=== PATIENT | female | born 1990 | race American Indian/Alaskan Native ===

== ENCOUNTER 2016-10-27 15:34 | Emergency (ER) | payer OTHER ==
[2016-10-27 19:22] LABS: Bacteria,Urine 1+ /HPF (Negative); Bilirubin,Urine NEG (Negative); Blood,Urine LG (Negative); Ketones,Urine NEG (Negative); Leukocyte Esterase,Urine MOD (Negative); Mucus,Urine FEW /HPF; Nitrite,Urine NEG (Negative); Protein,Urine <15 mg/dL mg/dL (Negative); Urobilinogen,Urine < 2.0 mg/dL (<2.0)
[2016-10-27 19:35] LABS: Basophils % (Auto) 0.2 % (0.0-1.8); Eosinophils % (Auto) 0.2 % (0.0-4.3); Mean Corpuscular HGB Conc 30 % (30-34); Mean Corpuscular Volume 72 fl (79-97); Platelet Count 295 K/mm3 (140-440); Red Blood Count 4.81 M/mm3 (3.65-5.03); Red Cell Distribution Width 17.2 % (13.2-15.2); White Blood Count 16.2 K/mm3 (4.5-11.0)
[2016-10-27 19:38] LABS: Hematocrit 34.8 % (30.3-42.9); Hemoglobin 10.6 gm/dl (10.1-14.3); Mean Corpuscular Hemoglobin 22 pg (28-32)
[2016-10-27 19:54] LABS: Alanine Aminotransferase 8 units/L (7-56); Albumin 4.1 g/dL (3.9-5); Albumin/Globulin Ratio 1.3 %; Alkaline Phosphatase 104 units/L (35-129); Anion Gap 17 mmol/L; BUN/Creatinine Ratio 12.85; Bilirubin,Total 0.4 mg/dL (0.1-1.2); Blood Urea Nitrogen 9 mg/dL (7-17); Calcium 8.5 mg/dL (8.4-10.2); Carbon Dioxide 25 mmol/L (22-30); Chloride 98.4 mmol/L (98-107); Glucose 96 mg/dL (65-100); Lipase 29 units/L (13-60); Potassium 4.2 mmol/L (3.6-5.0); Sodium 136 mmol/L (137-145); Total Protein 7.2 g/dL (6.3-8.2)
--- NOTE | 2016-10-27 23:33 | Ultrasound Report ---
FINAL REPORT PROCEDURE: US ABDOMEN LIMITED TECHNIQUE: Real-time sonography in multiple planes of the gallbladder fossa and CBD with imaging of the adjacent liver, pancreas, and right kidney was performed with image documentation. CPT 24450 HISTORY: ruq pain COMPARISON: No prior studies are available for comparison. FINDINGS: Liver: Normal size and echotexture with no evidence of cystic or solid mass lesion. Gallbladder: Fluid filled. No gallstones, wall thickening, pericholecystic fluid, or sonographic Rodriguez's sign . Intrahepatic bile ducts: Normal . Extrahepatic bile ducts: Normal . Pancreas: Normal as visualized with suboptimal depiction of the pancreatic tail. Right kidney: Normal echotexture. No focal renal mass, calculus, or hydronephrosis. Other: No free fluid. IMPRESSION: Normal Examination
--- NOTE | 2016-10-28 00:26 | Emergency Department Report ---
ED Abdominal Pain HPI - General Chief Complaint: Abdominal Pain Stated Complaint: ABD PAIN Time Seen by Provider: 10/27/16 22:44 Source: patient Mode of arrival: Wheelchair Limitations: No Limitations - History of Present Illness Initial Comments: 26-year-old female with no significant past medical history presents to the hospital complains of sudden onset abdominal pain. Symptoms started after discharge about noon. Pain was sharp, constant, rated 8/10 in intensity. Patient took Excedrin with decrease in pain prior to arrival. She denies nausea or vomiting today but states she had one episode of vomiting 4 days ago but none since. Also denies melena, hematochezia, diarrhea, fever, or dysuria. Patient is having some vaginal bleeding. - Related Data Previous Rx's Medication Instructions Recorded Last Taken Type Nitrofurantoin [place]/M-Cryst 100 mg PO Q12HR #14 capsule 10/28/16 Unknown Rx [Macrobid CAP] Omeprazole Magnesium [PriLOSEC] 10 mg PO QDAY #30 suspdr.pkt 10/28/16 Unknown Rx Promethazine [Phenergan TAB] 25 mg PO Q6HR PRN #20 tab 10/28/16 Unknown Rx traMADol [Ultram 50 MG tab] 50 mg PO Q6HR PRN #20 tablet 10/28/16 Unknown Rx Allergies Allergy/AdvReac Type Severity Reaction Status Date / Time No Known Allergies Allergy Unverified 10/27/16 19:03 ED Review of Systems ROS: Stated complaint: ABD PAIN Other details as noted in HPI Comment: All other systems reviewed and negative Other: Constitutional: No fevers chills Eyes: No eye pain visual changes ENT: No ear pain or throat pain Neck: Denies pain Respiratory: Denies cough wheezing shortness of breath Cardiovascular: Denies chest pain, palpitations, syncope GI: as per hpi : Denies dysuria, urinary frequency, or urgency Musculoskeletal: Denies back pain Skin: Denies rash, lesions, erythema Neurologic: Denies headache, numbness, weakness Psychiatric: Denies suicidal ideation, hallucinations ED Past Medical Hx - Past Medical History Previous Medical History?: No - Surgical History Past Surgical History?: No - Social History Smoking Status: Never Smoker Substance Use Type: None - Medications Home Medications: Home Medications Medication Instructions Recorded Confirmed Last Taken Type Nitrofurantoin [place]/M-Cryst 100 mg PO Q12HR #14 capsule 10/28/16 Unknown Rx [Macrobid CAP] Omeprazole Magnesium [PriLOSEC] 10 mg PO QDAY #30 suspdr.pkt 10/28/16 Unknown Rx Promethazine [Phenergan TAB] 25 mg PO Q6HR PRN #20 tab 10/28/16 Unknown Rx traMADol [Ultram 50 MG tab] 50 mg PO Q6HR PRN #20 tablet 10/28/16 Unknown Rx ED Physical Exam - General Limitations: No Limitations - Other Other exam information: General: No limitations, patient is alert in no acute distress, obese Head exam: Atraumatic, normocephalic Eyes exam: Normal appearance, nonicteric sclera ENT: Moist mucous membrane, normal oropharynx Neck exam: Normal inspection, full range of motion, no meningismus nontender Respiratory exam: Clear to auscultation bilateral, no wheezes, rales, crackles Cardiovascular: Normal rate and rhythm, normal heart sounds Abdomen: Soft, nondistended, epigastric tenderness mild. No Rodriguez's sign. No pain at McBurney's point. Extremity: Full range of motion normal inspection no deformity Back: Normal Inspection, full range of motion, no tenderness Neurologic: Alert, oriented x3, cranial nerves intact, no motor or sensory deficit Psychiatric: normal affect, normal mood Skin: Warm, dry, intact ED Course Vital Signs 10/27/16 16:49 Temperature 98.3 F Pulse Rate 61 Respiratory 18 Rate Blood Pressure 141/62 O2 Sat by Pulse 100 Oximetry - Reevaluation(s) Reevaluation #1: 10/28/16 00:21 Patient's pain remained controlled in ED ED Medical Decision Making - Lab Data Result diagrams: 10/27/16 19:13 10/27/16 19:13 Lab Results 10/27/16 10/27/16 10/27/16 Range/Units 19:13 19:13 Unknown WBC 16.2 H (4.5-11.0) K/mm3 RBC 4.81 (3.65-5.03) M/mm3 Hgb 10.6 (10.1-14.3) gm/dl Hct 34.8 (30.3-42.9) % MCV 72 L (79-97) fl MCH 22 L (28-32) pg MCHC 30 (30-34) % RDW 17.2 H (13.2-15.2) % Plt Count 295 (140-440) K/mm3 Lymph % (Auto) 11.7 L (13.4-35.0) % [place] % (Auto) 6.1 (0.0-7.3) % Eos % (Auto) 0.2 (0.0-4.3) % Baso % (Auto) 0.2 (0.0-1.8) % Lymph # 1.9 (1.2-5.4) K/mm3 [place] # 1.0 H (0.0-0.8) K/mm3 Eos # 0.0 (0.0-0.4) K/mm3 Baso # 0.0 (0.0-0.1) K/mm3 Seg Neutrophils % 81.8 H (40.0-70.0) % Seg Neutrophils # 13.3 H (1.8-7.7) K/mm3 Sodium 136 L (137-145) mmol/L Potassium 4.2 (3.6-5.0) mmol/L Chloride 98.4 (98-107) mmol/L Carbon Dioxide 25 (22-30) mmol/L Anion Gap 17 mmol/L BUN 9 (7-17) mg/dL Creatinine 0.7 (0.7-1.2) mg/dL Estimated GFR > 60 ml/min BUN/Creatinine Ratio 12.85 % Glucose 96 (65-100) mg/dL Calcium 8.5 (8.4-10.2) mg/dL Total Bilirubin 0.4 (0.1-1.2) mg/dL AST 14 (5-40) units/L ALT 8 (7-56) units/L Alkaline Phosphatase 104 (35-129) units/L Total Protein 7.2 (6.3-8.2) g/dL Albumin 4.1 (3.9-5) g/dL Albumin/Globulin Ratio 1.3 % Lipase 29 (13-60) units/L Urine Color Yellow (Yellow) Urine Turbidity Slightly-cloudy (Clear) Urine pH 5.0 (5.0-7.0) Ur Specific [place] 1.014 (1.003-1.030) Urine Protein <15 mg/dl (Negative) mg/dL Urine Glucose (UA) Neg (Negative) mg/dL Urine Ketones Neg (Negative) mg/dL Urine Blood Lg (Negative) Urine Nitrite Neg (Negative) Urine Bilirubin Neg (Negative) Urine Urobilinogen < 2.0 (<2.0) mg/dL Ur Leukocyte Esterase Mod (Negative) Urine WBC (Auto) 14.0 H (0.0-6.0) /HPF Urine RBC (Auto) 5.0 (0.0-6.0) /HPF U Epithel Cells (Auto) 8.0 (0-13.0) /HPF Urine Bacteria (Auto) 1+ (Negative) /HPF Urine Mucus Few /HPF Urine HCG, Qual Negative (Negative) - Radiology Data Radiology results: report reviewed (us abd: gb normal, no acute findings) - Medical Decision Making Patient's abdomen relatively benign with exception of mild epigastric tenderness on palpation. No further pain medication provided the ED since resolved prior to my evaluation. Slight leukocytosis noted on CBC with unremarkable ultrasound. Urine has white cells and blood. Patient admits to not using a pad to wipe prior to prior to providing a sample and she does have some vaginal bleeding. She'll be placed on Macrobid given the leukocytosis and placed on tramadol and PPI. PMD follow-up will be encouraged Critical Care Time: No Critical care attestation.: If time is entered above; I have spent that time in minutes in the direct care of this critically ill patient, excluding procedure time. ED Disposition Clinical Impression: Upper abdominal pain, Urine leukocytes increased Disposition: DISCHARGED TO HOME OR SELFCARE Is pt being admited?: No Does the pt Need Aspirin: No Condition: Stable Instructions: Abdominal Pain (ED), Urinary Tract Infection in Women (ED) Additional Instructions: Take medication as prescribed. Return if symptoms worsen. Prescriptions: Nitrofurantoin [place]/M-Cryst [Macrobid CAP] 100 mg PO Q12HR #14 capsule Omeprazole Magnesium [PriLOSEC] 10 mg PO QDAY #30 suspdr.pkt Promethazine [Phenergan TAB] 25 mg PO Q6HR PRN #20 tab PRN Reason: Nausea traMADol [Ultram 50 MG tab] 50 mg PO Q6HR PRN #20 tablet PRN Reason: Pain Referrals: [facility] [Provider Group] - 3-5 Days ISABELLE RAMIREZ MD [Staff Physician] - 3-5 Days (GI doctor ) Time of Disposition: 00:28
[2016-10-28 01:06] VITALS: BP 120/62
== END 2016-10-28 01:10 | disposition home or self-care (01) ==
LOC: ED 15:34
DX: R10.13 Epigastric pain (principal); R11.10 Vomiting, unspecified; N93.9 Abnormal uterine and vaginal bleeding, unspecified; Z79.899 Other long term (current) drug therapy
CPT/HCPCS: 36415; 76705; 80053; 81001; 81025; 83690; 85025; 99284

== ENCOUNTER 2016-12-27 14:45 | Emergency (ER) | payer SELFPAY ==
[2016-12-27 15:33] VITALS: BP 111/39
--- NOTE | 2016-12-27 15:50 | Emergency Department Report ---
ED General Adult HPI - General Chief complaint: Syncope Stated complaint: HYPOTENSIVE Time Seen by Provider: 12/27/16 15:44 Source: patient, EMS (ems notes not available at time of chart dictation), RN notes reviewed Mode of arrival: Stretcher Limitations: No Limitations - History of Present Illness Initial comments: This is a 26-year-old female. She is previously unknown to me. She does not have a primary care doctor. She has no chronic medical conditions. She does not take control tablets. Her last menstrual period was 12/22/2015. The patient is brought to the hospital by EMS today for syncope. The patient was donating plasma today, and finished. She reports that she did not complete a saline infusion. She reports that she only ate a single salad today, and nothing else. She reports that she went to the bathroom, urinated, and then passed out. She has no pain at this time. There is no chest pain or shortness of breath. There is no headache or neck pain. Prior to the event, there is no chest pain, shortness of breath, vomiting, sudden severe thunderclap headache, there is no neck pain. Currently, the patient has no complaints at this time. -: Sudden Consistency: now resolved Improves with: none Worsens with: none Associated Symptoms: denies other symptoms, syncope - Related Data Previous Rx's Medication Instructions Recorded Last Taken Type Nitrofurantoin [place]/M-Cryst 100 mg PO Q12HR #14 capsule 10/28/16 Unknown Rx [Macrobid CAP] Omeprazole Magnesium [PriLOSEC] 10 mg PO QDAY #30 suspdr.pkt 10/28/16 Unknown Rx Promethazine [Phenergan TAB] 25 mg PO Q6HR PRN #20 tab 10/28/16 Unknown Rx traMADol [Ultram 50 MG tab] 50 mg PO Q6HR PRN #20 tablet 10/28/16 Unknown Rx Allergies Allergy/AdvReac Type Severity Reaction Status Date / Time No Known Allergies Allergy Unverified 10/27/16 19:03 ED Review of Systems ROS: Stated complaint: HYPOTENSIVE Other details as noted in HPI Constitutional: denies: malaise Eyes: denies: vision change ENT: denies: epistaxis Cardiovascular: syncope. denies: chest pain Gastrointestinal: denies: abdominal pain, nausea, diarrhea Genitourinary: denies: urgency, dysuria Musculoskeletal: denies: back pain, joint swelling, arthralgia Skin: denies: rash, lesions Neurological: denies: headache, weakness, paresthesias ED Past Medical Hx - Past Medical History Previous Medical History?: No - Surgical History Past Surgical History?: No - Social History Smoking Status: Never Smoker Substance Use Type: None - Medications Home Medications: Home Medications Medication Instructions Recorded Confirmed Last Taken Type Nitrofurantoin [place]/M-Cryst 100 mg PO Q12HR #14 capsule 10/28/16 Unknown Rx [Macrobid CAP] Omeprazole Magnesium [PriLOSEC] 10 mg PO QDAY #30 suspdr.pkt 10/28/16 Unknown Rx Promethazine [Phenergan TAB] 25 mg PO Q6HR PRN #20 tab 10/28/16 Unknown Rx traMADol [Ultram 50 MG tab] 50 mg PO Q6HR PRN #20 tablet 10/28/16 Unknown Rx ED Physical Exam - General Limitations: No Limitations General appearance: alert, in no apparent distress - Head Head exam: Present: atraumatic, normocephalic - Eye Eye exam: Present: normal appearance, PERRL, EOMI. Absent: nystagmus - ENT ENT exam: Present: normal exam, normal orophraynx, mucous membranes moist, normal external ear exam - Neck Neck exam: Present: normal inspection, full ROM. Absent: tenderness, meningismus - Respiratory Respiratory exam: Present: normal lung sounds bilaterally. Absent: respiratory distress, wheezes, rales, rhonchi, stridor, chest wall tenderness - Cardiovascular Cardiovascular Exam: Present: regular rate, normal rhythm, normal heart sounds. Absent: bradycardia, tachycardia, irregular rhythm, systolic murmur, diastolic murmur, rubs, gallop - GI/Abdominal GI/Abdominal exam: Present: soft, normal bowel sounds. Absent: distended, tenderness, guarding, rebound, rigid, pulsatile mass - Extremities Exam Extremities exam: Present: normal inspection, full ROM, normal capillary refill. Absent: tenderness, pedal edema, joint swelling, calf tenderness - Back Exam Back exam: Present: normal inspection, full ROM. Absent: tenderness, CVA tenderness (R), CVA tenderness (L), muscle spasm, paraspinal tenderness, vertebral tenderness - Neurological Exam Neurological exam: Present: alert, oriented X3, normal gait, other (Extraocular movements intact. Tongue midline. No facial droop. Facial sensation intact to light touch in the V1, V2, V3 distribution bilaterally. 5 and 5 strength in 4 extremities.. Sensation is intact to light touch in 4 extremities.). Absent : motor sensory deficit - Psychiatric Psychiatric exam: Present: normal affect, normal mood - Skin Skin exam: Present: warm, dry, intact, normal color. Absent: rash ED Course Vital Signs 12/27/16 12/27/16 15:17 17:29 Temperature 98.2 F Pulse Rate 78 Respiratory 22 22 Rate Blood Pressure 111/39 O2 Sat by Pulse 100 98 Oximetry - Reevaluation(s) Reevaluation #1: 12/27/16 16:20 Differential diagnosis: Dehydration, orthostasis, vagal event, benign syncope Assessment and plan: 26-year-old female with syncopal event that is precipitated by donation of plasma and urination. She is afebrile with reassuring vital signs, has a GCS of 15, NIH score of 0, walks with a steady gait, is noted to be playing on a cellular phone. There are no pulmonary embolus or DVT risk factors, she is low risk by well's criteria, and she is perc negative. Her EKG does not demonstrate any significant arrhythmia, and her vital signs are unremarkable. Leukocytosis is appreciated, this is nonspecific, may be secondary to stress demargination. I clinically do not suspect serious bacterial infection based on her history and physical. She will be placed on a quality assurance monitor, we will observe her, and check basic laboratory studies, including test, electrolytes Reevaluation #2: 12/27/16 17:24 patient reassessed. She is resting comfortably. Her family is there with her. Mild hypocalcemia is appreciated, this can be followed up by her primary care doctor. She is instructed to start [id number] vitamin supplementation calcium supplementation. She will be discharged at this time. Return precautions are extensively reviewed. ED Medical Decision Making - Lab Data Result diagrams: 12/27/16 15:58 12/27/16 15:58 Vital Signs 12/27/16 15:17 Temperature 98.2 F Pulse Rate 78 Respiratory 22 Rate Blood Pressure 111/39 O2 Sat by Pulse 100 Oximetry Lab Results 12/27/16 Range/Units 15:58 WBC 18.5 H (4.5-11.0) K/mm3 RBC 4.86 (3.65-5.03) M/mm3 Hgb 11.0 (10.1-14.3) gm/dl Hct 36.3 (30.3-42.9) % MCV 75 L (79-97) fl MCH 23 L (28-32) pg MCHC 30 (30-34) % RDW 17.8 H (13.2-15.2) % Plt Count 292 (140-440) K/mm3 Vital Signs 12/27/16 15:17 Temperature 98.2 F Pulse Rate 78 Respiratory 22 Rate Blood Pressure 111/39 O2 Sat by Pulse 100 Oximetry - EKG Data -: EKG Interpreted by Ut EKG shows normal: sinus rhythm, axis, intervals, QRS complexes, ST-T waves - EKG Data When compared to previous EKG there are: previous EKG unavailable 12/27/16 16:22 Normal sinus, 74 bpm, QTC 404 ms, not morphologically consistent with STEMI, normal axis. Critical care attestation.: If time is entered above; I have spent that time in minutes in the direct care of this critically ill patient, excluding procedure time. ED Disposition Clinical Impression: Syncope Disposition: DISCHARGED TO HOME OR SELFCARE Is pt being admited?: No Does the pt Need Aspirin: No Condition: Stable Instructions: Syncope (ED) Additional Instructions: Laboratory studies were unremarkable with the exception of slightly decreased potassium level. Follow-up with a primary care doctor or electronics warfare technician within the next 12-14 days. Initiate supplementation with [id number] calcium and/or multivitamins. Return to the ER right away with fevers or chills, chest pain or shortness of breath, intractable nausea or vomiting, inability to tolerate liquid feeds, new , worsening or different symptoms. Referrals: PRIMARY CAREMD [Primary Care Provider] - 3-5 Days KARYN TIPTON MD [Staff Physician] - 3-5 Days DANI PINEDA MD [Staff Physician] - 3-5 Days
[2016-12-27 16:15] LABS: Mean Corpuscular HGB Conc 30 % (30-34); Mean Corpuscular Volume 75 fl (79-97); Platelet Count 292 K/mm3 (140-440); Red Blood Count 4.86 M/mm3 (3.65-5.03); Red Cell Distribution Width 17.8 % (13.2-15.2); White Blood Count 18.5 K/mm3 (4.5-11.0)
[2016-12-27 16:16] LABS: Hematocrit 36.3 % (30.3-42.9); Mean Corpuscular Hemoglobin 23 pg (28-32)
[2016-12-27 16:24] LABS: INR 1.02 (0.87-1.13)
[2016-12-27 16:30] LABS: Anion Gap 14 mmol/L; BUN/Creatinine Ratio 11.25; Blood Urea Nitrogen 9 mg/dL (7-17); Calcium 7.9 mg/dL (8.4-10.2); Carbon Dioxide 25 mmol/L (22-30); Chloride 101.4 mmol/L (98-107); Glucose 143 mg/dL (65-100); Potassium 4.4 mmol/L (3.6-5.0); Sodium 136 mmol/L (137-145)
== END 2016-12-27 17:30 | disposition home or self-care (01) ==
LOC: ED 14:45
DX: R55 Syncope and collapse (principal)
CPT/HCPCS: 36415; 80048; 84702; 85027; 85610; 93005; 93010; 99284